=== PATIENT | female | born 1970 | race Caucasian/White ===

== ENCOUNTER 2021-01-08 16:10 | Emergency (ER) | payer OTHER ==
[2021-01-08] MEDS ORDERED: Pantoprazole 40 MG Tab.CR PO STA (16:51)
--- NOTE | 2021-01-08 16:53 | EDM.PDOC ---
ED HPI GENERAL MEDICAL PROBLEM - General Chief Complaint: General Stated Complaint: LOW BLOOD SUGAR Time Seen by Provider: 01/08/21 16:42 - History of Present Illness INITIAL COMMENTS - FREE TEXT/NARRATIVE: History of present illness: [] Patient has abdominal pain. It started on 03 January. It is more of a pressure in the epigastrium and feeling of gas pressure with nausea than it is a pain. Patient has no change in bowel or bladder habits. She is nauseated but not vomiting. She did vomit quite a bit of the first day of onset. Maldonado Pepto-Bismol are not helping. The patient has a history of cholecystectomy. Review of systems: As per history of present illness and below otherwise all systems reviewed and negative. Past medical history: As per history of present illness and as reviewed below otherwise nonco ntributory. Surgical history: As per history of present illness and as reviewed below otherwise noncontributory. Social history: No reported history of drug or alcohol abuse. Family history: As per history of present illness and as reviewed below otherwise noncontributory. Physical exam: Constitutional - well developed, well-nourished and in no acute distress HEENT - normocephalic, no evidence of trauma - external nose and mouth normal - no mass in neck and no JVD - mucosae moist EYES - full EOM, PERRL, no icterus - no evidence of inflammation, injection, or drainage Respiratory - no respiratory distress, equal bilateral expansion, lungs clear to auscultation and no abnormal lung sounds Cardiovascular - Regular Rhythm with S1 and S2 appreciated and no murmur, gallop or rub. GI -tender in epigastrium. Remainder the abdomen not very tender. Abdomen soft without distension or organomegaly - normal bowel sounds - no guard or rebound Musculoskeletal no gross deformity of long bones or joints - no tenderness, swelling or edema Neurologic - Alert and oriented times four - CN II-XII grossly intact - motor sensory and coordination symmetrically normal Psychiatric - appropriate mood and affect with normal thought content Hematologic - No petechiae or purpura - mucosa appropriate color and sclera not pale - normal nail bed color and refill Integument - no rash or evidence of trauma - normal turgor Diagnostics: [] Therapeutics: [] Impression: [] Plan: [] Definitive disposition and diagnosis as appropriate pending reevaluation and review of above. Treatments ADMISSIONS DEAN: Reports: NSAIDS - Related Data Allergies Allergy/AdvReac Type Severity Reaction Status Date / Time No Known Allergies Allergy Verified 01/08/21 16:30 Home Meds: Home Meds Dicyclomine [Bentyl] 10 mg PO TID 01/08/21 [History] Dulaglutide [Trulicity] 1 dose SUBCUT WEEKLY 01/08/21 [History] Rizatriptan Benzoate [Rizatriptan] 5 mg PO Q4H PRN 01/08/21 [History] Topiramate [Trokendi Xr] 50 mg PO DAILY 01/08/21 [History] buPROPion HCL [Bupropion Xl] 300 mg PO DAILY 01/08/21 [History] busPIRone HCl [Buspirone HCl] 15 mg PO DAILY 01/08/21 [History] glipiZIDE [Glucotrol XL] 5 mg PO DAILY 01/08/21 [History] metFORMIN [Glucophage XR] 500 mg PO BID 01/08/21 [History] Past Medical History HEENT History: Reports: None Cardiovascular History: Reports: None Respiratory History: Reports: None Gastrointestinal History: Reports: Cholelithiasis Genitourinary History: Reports: None 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: Musculoskeletal History: Reports: None Neurological History: Reports: None Psychiatric History: Reports: None Endocrine/Metabolic History: Reports: Diabetes, Type II Hematologic History: Reports: None Immunologic History: Reports: None Oncologic (Cancer) History: Reports: None Dermatologic History: Reports: None - Infectious Disease History Infectious Disease History: Reports: Chicken Pox - Past Surgical History Head Surgeries/Procedures: Reports: None GI Surgical History: Reports: Cholecystectomy Female Surgical History: Reports: Hysterectomy Social & Family History - Family History Family Medical History: No Pertinent Family History - Tobacco Use Tobacco Use Status *Q: Never Tobacco User Second Hand Smoke Exposure: Yes - Caffeine Use Caffeine Use: Reports: Tea - Recreational Drug Use Recreational Drug Use: No ED ROS GENERAL - Review of Systems Review Of Systems: Comprehensive ROS is negative, except as noted in HPI. ED EXAM, GENERAL - Physical Exam Exam: See Below Free Text/Narrative:: My physical exam is in the HPI Course - Vital Signs Last Recorded V/S: Last Vital Signs Temp 36.1 C 01/08/21 16:34 Pulse 88 01/08/21 16:34 Resp 16 01/08/21 16:34 BP 129/83 01/08/21 16:34 Pulse Ox 95 01/08/21 16:34 - Orders/Labs/Meds Labs: Laboratory Tests 01/08/21 01/08/21 01/08/21 Range/Units 16:44 17:08 17:08 WBC 8.17 (4.0-11.0) K/uL RBC 4.50 (4.30-5.90) M/uL Hgb 14.3 (12.0-16.0) g/dL Hct 40.4 (36.0-46.0) % MCV 89.8 (80.0-98.0) fL MCH 31.8 (27.0-32.0) pg MCHC 35.4 (31.0-37.0) g/dL RDW Std Deviation 41.6 (28.0-62.0) fl RDW Coeff of Bello 13 (11.0-15.0) % Plt Count 288 (150-400) K/uL MPV 11.60 (7.40-12.00) fL Neut % (Auto) 56.5 (48.0-80.0) % Lymph % (Auto) 35.6 (16.0-40.0) % [place] % (Auto) 5.4 (0.0-15.0) % Eos % (Auto) 2.1 (0.0-7.0) % Baso % (Auto) 0.4 (0.0-1.5) % Neut # (Auto) 4.6 (1.4-5.7) K/uL Lymph # (Auto) 2.9 H (0.6-2.4) K/uL [place] # (Auto) 0.4 (0.0-0.8) K/uL Eos # (Auto) 0.2 (0.0-0.7) K/uL Baso # (Auto) 0.0 (0.0-0.1) K/uL Nucleated RBC % 0.0 /100WBC Nucleated RBCs # 0 K/uL Sodium 135 L (136-145) mmol/L Potassium 3.9 (3.5-5.1) mmol/L Chloride 103 (98-107) mmol/L Carbon Dioxide 22.9 (21.0-32.0) mmol/L BUN 14 (7.0-18.0) mg/dL Creatinine 1.1 H (0.6-1.0) mg/dL Est Cr Clr Drug Dosing TNP Estimated GFR (MDRD) 53.0 ml/min Glucose 106 (74-106) mg/dL POC Glucose 111 H (70-99) mg/dL Calcium 9.2 (8.5-10.1) mg/dL Total Bilirubin 0.3 (0.2-1.0) mg/dL AST 19 (15-37) IU/L ALT 43 (14-63) IU/L Alkaline Phosphatase 55 (46-116) U/L Total Protein 7.5 (6.4-8.2) g/dL Albumin 4.2 (3.4-5.0) g/dL Globulin 3.3 (2.6-4.0) g/dL Albumin/Globulin Ratio 1.3 (0.9-1.6) Lipase 105 (73-393) U/L Meds: Medications Discontinued Medications Generic Name Dose Route Start Last Admin Trade Name Brianq PRN Reason Stop Dose Admin Al Hydroxide/Mg Hydroxide 15 0 ml 01/08/21 17:07 01/08/21 17:12 ml/ Lidocaine HCl 5 ml PO 01/08/21 17:08 1 each ONETIME ONE Administration Pantoprazole Sodium 40 mg 01/08/21 16:51 01/08/21 17:12 Pantoprazole 40 Mg Tab.Cr PO 01/08/21 16:52 40 mg STAT STA Administration Departure - Departure Time of Disposition: 17:41 Disposition: Home, Self-Care 01 Condition: Good Clinical Impression: Gastritis - Discharge Information Instructions: Gastritis, Adult, [id number] Referrals: Gerald Hernandez, [employer] [Primary Care Provider] - Forms: ED Department Discharge Additional Instructions: By omeprazole or pantoprazole or similar medication which pharmacy you can tell you is [id number] and let you know which ones least costly. Arrange for upper GI endoscopy. Return if worse. [facility] in [place] it is done here by general surgery. [facility] - General Surgery Professional Building [address] [place] [address], [address] [place] [address] The following information is given to patients seen in the emergency department who are being discharged to home. This information is to outline your options for follow-up care. We provide all patients seen in our emergency department with a follow-up referral. The need for follow-up, as well as the timing and circumstances, are variable depending upon the specifics of your emergency department visit. If you don't have a primary care physician on staff, we will provide you with a referral. We always advise you to contact your personal physician following an emergency department visit to inform them of the circumstance of the visit and for follow-up with them and/or the need for any referrals to a consulting specialist. The emergency department will also refer you to a specialist when appropriate. This referral assures that you have the opportunity for follow-up care with a specialist. All of these measure are taken in an effort to provide you with optimal care, which includes your follow-up. Under all circumstances we always encourage you to contact your private physician who remains a resource for coordinating your care. When calling for follow-up care, please make the office aware that this follow-up is from your recent emergency room visit. If for any reason you are refused follow-up, please contact the [facility] Emergency Department at and asked to speak to the emergency department charge nurse. Sepsis Event Note (ED) - Evaluation Sepsis Screening Result: No Definite Risk - Focused Exam Vital Signs: Vital Signs Temp Pulse Resp BP Pulse Ox 01/08/21 16:34 36.1 C 88 16 129/83 95
[2021-01-08] MEDS ORDERED: Alum Hydrox/Mag Hydrox/Simeth 15 ML, Lidocaine 2% 5 ML PO ONE ×2 (17:07)
[2021-01-08 17:35] LABS: BLOOD UREA NITROGEN,BUN 14 mg/dL (7.0-18.0); CARBON DIOXIDE,CO2 22.9 mmol/L (21.0-32.0); CHLORIDE,CL 103 mmol/L (98-107); GLUCOSE RANDOM 106 mg/dL (74-106); LIPASE 105 U/L (73-393); POTASSIUM,K 3.9 mmol/L (3.5-5.1); SODIUM,NA 135 mmol/L (136-145)
== END 2021-01-08 17:54 | disposition home or self-care (01) ==
LOC: MW.ED 16:10
DX: K29.70 Gastritis, unspecified, without bleeding (principal); E11.9 Type 2 diabetes mellitus without complications; Z77.22 Contact with and (suspected) exposure to environmental tobacco smoke (acute) (chronic); Z79.84 Long term (current) use of oral hypoglycemic drugs; Z79.899 Other long term (current) drug therapy
CPT/HCPCS: 36415; 80053; 82947; 83690; 85025; 99284; A9270

== ENCOUNTER 2021-02-17 06:44 | Day surgery (SDC) | payer OTHER ==
[~2021-02-17 06:44] MED LIST: Lactated Ringers 1,000 ML IV SCH
[2021-02-17] MEDS ORDERED: Midazolam 1 MG/ML 2 ML SDV ONE (07:23)
[2021-02-17] MEDS ORDERED: Propofol 200 MG/20 ML SDV ONE (07:23)
[2021-02-17] MEDS ORDERED: fentaNYL 100 MCG/2 ML SDV ONE (07:23)
--- NOTE | 2021-02-17 07:25 | PCM.PREANE ---
Preanesthetic Assessment - Anesthesia/Transfusion/Family Hx Anesthesia History: Prior Anesthesia Without Reaction Transfusion History: Prior Transfusion Without Reaction - Review of Systems General: No Symptoms Pulmonary: No Symptoms Cardiovascular: No Symptoms Gastrointestinal: No Symptoms Neurological: No Symptoms Other: Reports: None - Physical Assessment NPO Status Date: 02/17/21 NPO Status Time: 00:00 Vital Signs: Last Vital Signs Temp 97.5 F 02/17/21 06:49 Pulse 89 02/17/21 06:49 Resp 16 02/17/21 06:49 BP 130/87 02/17/21 06:49 Pulse Ox 97 02/17/21 06:49 Height: 5 ft 5 in Weight: 167 lb ASA Class: 2 Mental Status: Alert & Oriented x3 Airway Class: Mallampati = 2 Dentition: Reports: Normal Dentition Thyro-Mental Finger Breadths: 3 Mouth Opening Finger Breadths: 3 ROM/Head Extension: Full Lungs: Clear to Auscultation, Normal Respiratory Effort Cardiovascular: Regular Rate, Regular Rhythm - Allergies Allergies/Adverse Reactions: Allergies Allergy/AdvReac Type Severity Reaction Status Date / Time Influenza Virus Vaccines Allergy "I get Verified 02/11/21 09:36 really sick" - Acknowledgements Anesthesia Type Planned: General Anesthesia Pt an Appropriate Candidate for the Planned Anesthesia: Yes Alternatives and Risks of Anesthesia Discussed w Pt/Guardian: Yes Pt/Guardian Understands and Agrees with Anesthesia Plan: Yes PreAnesthesia Questionnaire HEENT History: Reports: Hard of Hearing, Other (See Below) Other HEENT History: wears glasses, shmuel hearing aids Cardiovascular History: Reports: None Respiratory History: Reports: None Gastrointestinal History: Reports: Cholelithiasis Other Gastrointestinal History: intermittent LUQ pain Genitourinary History: Reports: UTI, 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: Musculoskeletal History: Reports: Other (See Below) Other Musculoskeletal History: hx "fractured vertebrae" Neurological History: Reports: Head Trauma, Migraines Psychiatric History: Reports: Anxiety, Depression, PTSD Endocrine/Metabolic History: Reports: Diabetes, Type II Hematologic History: Reports: Blood Transfusion(s) Immunologic History: Reports: None Oncologic (Cancer) History: Reports: None Dermatologic History: Reports: None - Infectious Disease History Infectious Disease History: Reports: Chicken Pox - Past Surgical History Head Surgeries/Procedures: Reports: None HEENT Surgical History: Reports: None Cardiovascular Surgical History: Reports: None Respiratory Surgical History: Reports: None GI Surgical History: Reports: Cholecystectomy, Colonoscopy, EGD Female Surgical History: Reports: Hysterectomy Endocrine Surgical History: Reports: None Neurological Surgical History: Reports: None Musculoskeletal Surgical History: Reports: None Oncologic Surgical History: Reports: None Dermatological Surgical History: Reports: None - SUBSTANCE USE Tobacco Use Within Last Twelve Months: Smokeless Tobacco - HOME MEDS Home Medications: Home Meds Rizatriptan Benzoate [Rizatriptan] 5 mg PO ASDIRECTED PRN 01/08/21 [History] Topiramate [Trokendi Xr] 50 mg PO BID 01/08/21 [History] buPROPion HCL [Bupropion Xl] 300 mg PO DAILY 01/08/21 [History] busPIRone HCl [Buspirone HCl] 30 mg PO BID 01/08/21 [History] metFORMIN [Glucophage XR] 500 mg PO BID 01/08/21 [History] Estrogens, Conjugated [Premarin Vaginal Crm] 0.5 gm VAG ASDIRECTED 02/11/21 [History] Semaglutide [Wegovy] 1 injection SUBCUT WEEKLY 02/11/21 [History] Zolpidem [Ambien] 10 mg PO BEDTIME PRN 02/11/21 [History] glipiZIDE [Glipizide ER] 10 mg PO DAILY 02/11/21 [History] - CURRENT (IN HOUSE) MEDS Current Meds: Current Medications Lactated Ringer's (Ringers, Lactated) 1,000 mls @ 125 mls/hr IV ASDIRECTED [facility] Last Admin: 02/17/21 07:08 Dose: 125 mls/hr Documented by:
--- NOTE | 2021-02-17 08:03 | PCM.OPNOTE ---
- General Post-Op/Procedure Note Date of Surgery/Procedure: 02/17/21 Operative Procedure(s): egd w bx Findings: see [id number] Pre Op Diagnosis: abd pain Post-Op Diagnosis: Same Primary Surgeon: Alejandro Salmeron Pathology: sent Complications: None Condition: Good
--- NOTE | 2021-02-17 08:16 | PCM48HPAN ---
Post Anesthesia Note - EVALUATION WITHIN 48HRS OF ANESTHETIC Vital Signs in Normal Range: Yes Patient Participated in Evaluation: Yes Respiratory Function Stable: Yes Airway Patent: Yes Cardiovascular Function Stable: Yes Hydration Status Stable: Yes Pain Control Satisfactory: Yes Nausea and Vomiting Control Satisfactory: Yes Mental Status Recovered: Yes Vital Signs: Last Vital Signs Temp 98.1 F 02/17/21 08:00 Pulse 91 02/17/21 08:10 Resp 14 02/17/21 08:10 BP 99/70 02/17/21 08:10 Pulse Ox 94 L 02/17/21 08:10
--- NOTE | 2021-02-17 08:16 | PCM.POSTAN ---
POST ANESTHESIA ASSESSMENT - MENTAL STATUS Mental Status: Alert, Oriented - VITAL SIGNS Vital Signs: Last Vital Signs Temp 98.1 F 02/17/21 08:00 Pulse 91 02/17/21 08:10 Resp 14 02/17/21 08:10 BP 99/70 02/17/21 08:10 Pulse Ox 94 L 02/17/21 08:10 - RESPIRATORY Respiratory Status: Respiratory Rate WNL, Airway Patent, O2 Saturation Stable - CARDIOVASCULAR CV Status: Pulse Rate WNL, Blood Pressure Stable - GASTROINTESTINAL GI Status: No Symptoms - POST OP HYDRATION Hydration Status: Adequate & Stable
--- NOTE | 2021-02-17 15:23 | OR ---
SURGEON: Alejandro Salmeron MD DATE OF PROCEDURE: 02/17/2021 PREOPERATIVE DIAGNOSIS: Abdominal pain. POSTOPERATIVE DIAGNOSIS: Indeterminate. PROCEDURE PERFORMED: Esophagogastroduodenoscopy with biopsy. COMPLICATION: None. DESCRIPTION OF PROCEDURE: EGD: The patient was taken to the endoscopy room, and with the BODY MAKER, Diprivan was administered. A well-lubricated EGD scope was gently inserted through the oropharynx, down the esophagus, passing through the gastroesophageal junction, into the stomach. The mucosa was examined upon the passage. Any etiology will be noted. Once in the stomach, we continued to advance to the distal antrum, passed through the pylorus into the second portion of the duodenum. Again, the mucosa was examined for any abnormality and etiology. The scope was then retrieved back to the stomach and then retroflexed to look at the fundus of the stomach. If a biopsy was indicated, we will biopsy the antrum, body, and gastroesophageal junction. The air will be sucked out while the scope is retrieved to reduce the patient's discomfort. The patient tolerated the procedure well. There were no intraoperative complications. Dr. Salmeron was present through the whole procedure. Prior to surgery, a time-out had been called, the patient identified, procedure identified and antibiotic administered. FINDINGS: 1. The patient easily sedated with BODY MAKER and Diprivan, patient is soundly snoring. 2. Oropharynx and proximal esophagus are free of disease. No stricture or inflammation. Distal esophagus at a distance of 40 shows salmon-colored change, suggests acid reflux. The patient has lot of water or secretion in fact piled up in the esophagus. There is no stricture. We can barely enter the stomach, found out stomach has at least half of it is full of food or undigested food half occupied. It is not possible to irrigate. Wait for little bit peristalsis, we were barely able to find the antrum going to the duodenum. Duodenum also has a lot of food. We returned to the stomach really retroflex, look at anything as the stomach is just full of food. We biopsied the antrum, biopsied the body and sucked out the gas while we came out, so the study really was not able to get a full exam because of the amount of food. The patient is a diabetic, could be severe gastroparesis, may need to measure the dynamic of the stomach. We will check with the patient and see when was the last time she ate. The duodenal mucosa is pretty white in color. Throughout the whole study, there is no blood or lance ulcer, but again we can only look at maybe little bit under 50% of stomach. ANEL CARBAJAL /[id number]
== END 2021-02-17 08:35 | disposition home or self-care (01) ==
LOC: MW.SDS 06:44
PROVIDERS: ATTEND Surgery
DX: K29.50 Unspecified chronic gastritis without bleeding (principal); E11.9 Type 2 diabetes mellitus without complications; F17.220 Nicotine dependence, chewing tobacco, uncomplicated; Z79.899 Other long term (current) drug therapy; Z79.84 Long term (current) use of oral hypoglycemic drugs; Z98.890 Other specified postprocedural states; Z90.49 Acquired absence of other specified parts of digestive tract; Z88.7 Allergy status to serum and vaccine
CPT/HCPCS: 43239; 88305; 88342; J2250; J2704; J7120; 00731; J3010